=== PATIENT | male | born 1980 | race Caucasian/White ===

== ENCOUNTER 2017-05-16 11:45 | Emergency (ER) | payer SELFPAY ==
[~2017-05-16] VITALS: Ht 188 cm; Wt 81.6 kg
[2017-05-16 11:46] VITALS: BP 131/71
== END 2017-05-16 15:28 | disposition home or self-care (01) ==
LOC: ER 11:45
DX: F10.120 Alcohol abuse with intoxication, uncomplicated (principal); V49.49XA Driver injured in collision with other motor vehicles in traffic accident, initial encounter; Y93.89 Activity, other specified; Y99.8 Other external cause status; Y92.410 Unspecified street and highway as the place of occurrence of the external cause

== ENCOUNTER 2017-05-18 18:22 | Emergency (ER) | payer SELFPAY ==
[~2017-05-18] VITALS: Ht 188 cm; Wt 86.2 kg
[2017-05-18 19:34] VITALS: BP 143/76
[2017-05-18] MEDS ORDERED: SODIUM CHLORIDE 0.9% 1,000 ML IV ONE (20:21)
== END 2017-05-18 21:00 | disposition home or self-care (01) ==
LOC: ER 18:28
DX: S00.12XA Contusion of left eyelid and periocular area, initial encounter (principal); S00.93XA Contusion of unspecified part of head, initial encounter; S10.93XA Contusion of unspecified part of neck, initial encounter; R20.0 Anesthesia of skin; M54.2 Cervicalgia; V43.52XA Car driver injured in collision with other type car in traffic accident, initial encounter; Y93.89 Activity, other specified; Y92.89 Other specified places as the place of occurrence of the external cause; Y99.8 Other external cause status
CPT/HCPCS: 70450; 71010